=== PATIENT | female | born 1995 | race Hispanic/Latino ===

== ENCOUNTER 2020-08-15 05:55 | Day surgery (SDC) | payer OTHER ==
[2020-08-15] MEDS ORDERED: SCOPOLAMINE TRANSDERMAL PATCH 72 HR TD NR (06:00)
[2020-08-15] MEDS ORDERED: ACETAMINOPHEN 500 MG TAB PO SCH (06:00)
[2020-08-15] MEDS ORDERED: GABAPENTIN 300 MG CAP PO NR (06:00)
[2020-08-15] MEDS ORDERED: CELECOXIB 200 MG CAP PO NR (06:00)
[2020-08-15] MEDS ORDERED: MIDAZOLAM 2 MG/2 ML INJ IV NR (06:00)
[2020-08-15] MEDS ORDERED: LACTATED RINGERS 1,000 ML IV SCH (06:00)
[2020-08-15] MEDS ORDERED: BACTERIOSTATIC SODIUM CHLORIDE 0.9% 30 ML VIAL INFILTRATI ONE (06:28)
[2020-08-15] MEDS ORDERED: BUPIVACAINE/PF (0.25%) 2.5 MG/ML 30 ML VIAL INFILTRATI ONE ×2 (07:19→08:22)
[2020-08-15] MEDS ORDERED: HYDROmorphone 1 MG/1 ML INJ IV PRN (07:21)
[2020-08-15] MEDS ORDERED: ONDANSETRON 4 MG/2 ML INJ IV PRN (07:21)
--- NOTE | 2020-08-15 07:21 | Anesthesia Consultation ---
Anesthesia Consult and Med Hx Date of service: 08/15/20 - Airway Anesthetic Teeth Evaluation: Good (missing left upper wisdom tooth) ROM Head & Neck: Adequate Mental/Hyoid Distance: Adequate Mallampati Class: Class I Intubation Access Assessment: Good - Pulmonary Exam CTA: Yes - Cardiac Exam Cardiac Exam: RRR - Pre-Operative Health Status ASA Pre-Surgery Classification: ASA2 Proposed Anesthetic Plan: General - Pulmonary Hx Smoking: Yes (1/2 PPD) Hx Asthma: Yes (childhood; no recent inhaler use) Hx Respiratory Symptoms: No - Cardiovascular System Hx Hypertension: No Hx Heart Attack/AMI: No Hx Percutaneous Transluminal Coronary Angioplasty (PTCA): No Hx Cardia Arrhythmia: Yes (hx SVT s/p ablation in childhood; no longer follows with cardiology) Hx Pacemaker: No Hx Internal Defibrillator: No 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 Reports recent onset right shoulder pain. Has seen PCP and is being treated for OA. Pain affects ROM of the arm. Will position patient while awake in OR to ensure no strain to shoulder joint.
--- NOTE | 2020-08-15 07:21 | Anesthesia Day of Surgery ---
Anesthesia Day of Surgery - Day of Surgery Patient Examined: Yes Patient H&P Reviewed: Yes Patient is NPO: Yes
--- NOTE | 2020-08-15 07:32 | Short Stay Summary ---
Short Stay Documentation Date of service: 08/15/20 Narrative H&P: Pt is a 25 year old female who presents with prolonged history of recurrent pelvic pain. She has tried multiple medical modalities to no avail. Pt was told that she has an ovarian cyst - History H&P: obtained from office Past Medical History: No medical history Past Surgical History: appendectomy, hysterectomy Social history: - Allergies and Medications Current Medications: Allergies Latex, Natural Rubber Adverse Reaction (Severe, Verified 08/08/20 15:56) Swelling REDDNESS ALBUTERROL-CAUSES RAPID HR Adverse Reaction (Severe, Uncoded 08/08/20 15:56) Unknown CAUSES RAPID HEART RATE REGLAN-PANIC ATTACKS Adverse Reaction (Severe, Uncoded 08/08/20 15:56) Unknown PANIC ATTACKS Home Medications Medication Instructions Recorded Confirmed Last Taken Type Ibuprofen 800 mg PO Q8HR 08/08/20 08/08/20 Unknown History [place] 7.5-325 mg TAB 7.5 mg PO Q6HR PRN 08/08/20 08/08/20 Unknown History Promethazine HCl 25 mg PO PRN 08/08/20 08/08/20 Unknown History Active Medications Acetaminophen (Tylenol) 1,000 mg PO PREOP JOSÉ MANUEL Stop: 08/15/20 23:01 Last Admin: 08/15/20 06:53 Dose: 1,000 mg Documented by: Celecoxib (Celebrex) 200 mg PO PREOP NR Stop: 08/15/20 23:00 Last Admin: 08/15/20 06:53 Dose: 200 mg Documented by: Gabapentin (Gabapentin) 600 mg PO PREOP NR Stop: 08/15/20 23:00 Last Admin: 08/15/20 06:53 Dose: 600 mg Documented by: Hydromorphone HCl (Dilaudid) 0.5 mg IV Q10MIN PRN PRN Reason: Pain , Severe (7-10) Lactated Ringer's (Lactated Ringers) 1,000 mls @ 100 mls/hr IV DIRECT JOSÉ MANUEL Stop: 08/15/20 23:59 Last Admin: 08/15/20 06:44 Dose: 100 mls/hr Documented by: Midazolam HCl (Versed) 2 mg IV PREOP NR Stop: 08/15/20 23:00 Ondansetron HCl (Zofran) 4 mg IV ONCE PRN PRN Reason: Nausea And Vomiting Scopolamine (Transderm-Scop) 1 each TD PREOP NR Stop: 08/15/20 23:00 Last Admin: 08/15/20 06:54 Dose: 1 each Documented by: - Physical exam General appearance: no acute distress, other (thin) Integumentary: no rash HEENT: Atraumatic Lungs: Clear to auscultation, Normal air movement Breasts: deferred Heart: Regular rate, Normal S1, Normal S2 Gastrointestinal: normal, normoactive bowel sounds Female Genitourinary: other (painful) Rectal Exam: deferred Extremities: No edema - Brief post op/procedure progress note Date of procedure: 08/15/20 Pre-op diagnosis: Pelvic pain, Endometriosis Post-op diagnosis: same Procedure: Diagnostic laparoscopy, lysis of adhesions, Cauterization of endometriosis Anesthesia: GETA Findings: surgically absent uterus, moderate pelvic adhesions, scattered lesions of endometriosis Surgeon: GLADIS SANDHU Estimated blood loss: minimal Pathology: none Condition: stable - Hospital course Hospital course: unremarkable - Disposition Condition at discharge: Stable Disposition: DC-01 TO HOME OR SELFCARE Short Stay Discharge Plan Activity: advance as tolerated Weight Bearing Status: Weight Bear as Tolerated Diet: regular Follow up with: PRIMARY CAREMD [Primary Care Provider] - 7 Days GLADIS SANDHU MD [Staff Physician] - 14 Days Prescriptions: Docusate Sodium [Colace] 100 mg PO BID #60 capsule Ibuprofen [Motrin 800 MG tab] 800 mg PO Q8HR PRN #40 tablet PRN Reason: Pain, Mild (1-3) Oxycodone HCl/Acetaminophen [Percocet 7.5/325 mg] 1 each PO Q6HR PRN #20 tablet PRN Reason: Pain
[2020-08-15] MEDS ORDERED: ONDANSETRON 4 MG/2 ML INJ ONE (07:46)
[2020-08-15] MEDS ORDERED: fentaNYL 100 MCG/2 ML INJ ONE ×2 (07:46→07:55)
[2020-08-15] MEDS ORDERED: ROCURONIUM 50 MG/5 ML INJ IV ONE (07:46)
[2020-08-15] MEDS ORDERED: SUCCINYLCHOLINE CHLORIDE 200 MG/10 ML INJ MDV ONE (07:46)
[2020-08-15] MEDS ORDERED: PHENYLEPHRINE/NS 1,000 MCG/10 ML SYRINGE (OR USE) IV ONE (07:46)
[2020-08-15] MEDS ORDERED: dexAMETHasone 20 MG/5 ML VIAL ONE (07:46)
[2020-08-15] MEDS ORDERED: propofoL 200 MG/20 ML VIAL IV ONE (07:46)
[2020-08-15] MEDS ORDERED: GLYCOPYRROLATE 0.4 MG/2 ML INJ ONE (07:46)
[2020-08-15] MEDS ORDERED: LIDOCAINE MPF (2%) 20 MG/1 ML VIAL 5 ML ONE (07:46)
[2020-08-15] MEDS ORDERED: NEOSTIGMINE 10MG/10 ML INJ MDV ONE (07:46)
[2020-08-15] MEDS ORDERED: ceFAZolin/Water 2 GM/20 ML 2 GM/20 ML SYRINGE IV NR (08:00)
[2020-08-15] MEDS ORDERED: SODIUM CHLORIDE 0.9% IRR 1,500 ML BOTTLE IR ONE (08:22)
--- NOTE | 2020-08-15 09:24 | Operative Report ---
Operative Report Operative Report: Preoperative diagnosis: Chronic pelvic pain with history of endometriosis Postoperative diagnosis: Same Procedure: 1.Diagnostic laparoscopy, 2. Lysis of adhesions 3. Cauterization of endometriosis 4. Right ovarian cystectomy Surgeon: Anjelica Tyler Anesthesia: General EBL: Minimal IV fluids: 1000 mL Urine output: 50 mL Findings: Surgically absent uterus, normal left ovary back was mildly adhesed to the left pelvic sidewall, right ovarian cyst approximately 2 cm, scattered lesions of mild endometriosis throughout the pelvic region Specimens: None Complications: None The patient was properly identified as herself. She was then taken to the OR with IV running and in place. She was given general anesthesia without difficulty. She was placed in a dorsal lithotomy position. She was then prepped and draped in normal sterile fashion. Attention was turned to the patient's vagina. Her bladder was drained of clear urine with a red rubber catheter. A sponge stick was inserted into the vagina. The surgeon's gloves were changed and attention turned to the patient's abdomen. A small incision was made in the patient's umbilicus incision a 5 mm trocar was placed. The laparoscope confirmed intra-abdominal placement. The abdomen was insufflated with CO2 gas to approximately 25 mmHg. Initial survey of the abdomen revealed the above findings. Under direct visualization a second incision was made in the left lower quadrant and a third in the suprapubic region. The adhesions on the left were taken down using the LigaSure. Of note there was a cyst on the right ovary which was incised and revealed to be an endometrioma. The areas of endometriosis were systematically cauterized throughout the pelvic area. There was excellent hemostasis at the end of this portion of the procedure. This of Interceed was placed in the lower pelvic gutter to prevent any further adhesions. At this point the abdomen was deflated. All instruments were then removed from the abdomen. The incisions were then closed with 4-0 Monocryl. The incisions were also injected with quarter percent Marcaine. The patient tolerated the procedure well she was then awakened and taken recovery in stable condition. Sponge needle and instrument counts were correct 2.
[2020-08-15] MEDS ORDERED: oxyCODONE /ACETAMINOPHEN 5-325MG TAB PO NR (09:53)
[2020-08-15 10:00] VITALS: BP 103/63
--- NOTE | 2020-08-15 13:35 | Post Anesthesia Evaluation ---
- Post Anesthesia Evaluation Patient Participated: Yes Airway Patent: Yes Stable Respiratory Function: Yes Nausea/Vomiting: No Temp > 96.8F: Yes Pain Manageable: Yes Adequeate Hydration: Yes Anesthesia Complications: No
== END 2020-08-15 10:40 | disposition home or self-care (01) ==
LOC: OR 05:55
PROVIDERS: ATTEND Obstetrics & Gynecology
DX: R10.2 Pelvic and perineal pain (principal); G89.29 Other chronic pain; N80.8 Other endometriosis; F17.210 Nicotine dependence, cigarettes, uncomplicated; J45.909 Unspecified asthma, uncomplicated; K21.9 Gastro-esophageal reflux disease without esophagitis; M19.90 Unspecified osteoarthritis, unspecified site; F41.9 Anxiety disorder, unspecified; F32.9 Major depressive disorder, single episode, unspecified; Z98.890 Other specified postprocedural states; Z88.8 Allergy status to other drugs, medicaments and biological substances; Z79.899 Other long term (current) drug therapy; Z90.49 Acquired absence of other specified parts of digestive tract; Z90.710 Acquired absence of both cervix and uterus; Z87.440 Personal history of urinary (tract) infections
CPT/HCPCS: 58662; C1765; J0330; J0690; J1100; J1170; J2250; J2370; J2405; J2704; J2710; J3010; J7120

== ENCOUNTER 2021-05-01 11:44 | Day surgery (SDC) | payer OTHER ==
--- NOTE | 2021-05-01 09:07 | Short Stay Summary ---
Short Stay Documentation Date of service: 05/01/21 Narrative H&P: Pt is a 26 year old female with a history of endometriosis and severe chronic pelvic pain. Pt had laparoscopy 2 years ago in which adhesive disease was removed. This gave her relief for about 8 months, however she is now in constant pain like she was prior to surgery. Pt had a hysterectomy several years ago with a different physician. She is now requesting removal of both ovaries and understands the risks and consequences of doing so. - History Principal diagnosis: Chronic pelvic pain, ovarian cysts H&P: obtained from office Past Medical History: other Past Surgical History: hysterectomy Social history: - Allergies and Medications Current Medications: Allergies Latex, Natural Rubber Allergy (Severe, Verified 04/29/21 17:08) Swelling REDDNESS ALBUTERROL-CAUSES RAPID HR Allergy (Severe, Uncoded 04/29/21 17:08) Unknown CAUSES RAPID HEART RATE REGLAN-PANIC ATTACKS Allergy (Severe, Uncoded 04/29/21 17:08) Unknown PANIC ATTACKS Home Medications Medication Instructions Recorded Confirmed Last Taken Type Hydromorphone HCl 2 mg PO TID 04/29/21 04/29/21 Unknown History - Physical exam General appearance: mild distress, other (thin) HEENT: Atraumatic, PERRLA Lungs: Clear to auscultation, Normal air movement Breasts: deferred Heart: Regular rate, Normal S1, Normal S2 Gastrointestinal: normal, normoactive bowel sounds Female Genitourinary: deferred Rectal Exam: deferred Extremities: no ischemia, No edema - Brief post op/procedure progress note Date of procedure: 05/01/21 Pre-op diagnosis: Pelvic pain, endometriosis Post-op diagnosis: same Procedure: Operative laparoscopy, Right oopherectomy, ablation of endometriosis lesions Anesthesia: GETA Findings: surgically absent uterus, small cyst on right ovary, multiple implants of endometriosis scattered throughout pelvis and on peritoneum Surgeon: GLADIS SANDHU Estimated blood loss: 50-100ml Pathology: list (right ovary) Specimen disposition: to lab Condition: stable - Hospital course Hospital course: unremarkable - Disposition Condition at discharge: Good Disposition: 01 HOME / SELF CARE / HOMELESS Short Stay Discharge Plan Activity: advance as tolerated Weight Bearing Status: Weight Bear as Tolerated Diet: regular Wound: open to air Follow up with: PRIMARY CARE, [Primary Care Provider] - 7 Days Forms: Outpatient Surgery DC Inst. Prescriptions: estradioL [Estradiol (Twice Weekly)] 0.1 each TD 2XW #8 patch.tdsw Hydromorphone HCl 2 mg PO TID #30
[2021-05-01] MEDS ORDERED: BUPIVACAINE/PF (0.25%) 2.5 MG/ML 30 ML VIAL INFILTRATI ONE ×3 (12:08→13:14)
--- NOTE | 2021-05-01 12:09 | Anesthesia Day of Surgery ---
Anesthesia Day of Surgery - Day of Surgery Patient Examined: Yes Patient H&P Reviewed: Yes Patient is NPO: Yes
[2021-05-01] MEDS ORDERED: HYDROmorphone 1 MG/1 ML INJ IV PRN ×2 (12:11)
--- NOTE | 2021-05-01 12:11 | Anesthesia Consultation ---
Anesthesia Consult and Med Hx Date of service: 05/01/21 - Airway Anesthetic Teeth Evaluation: Poor (Missing) ROM Head & Neck: Adequate Mental/Hyoid Distance: Adequate Mallampati Class: Class III Intubation Access Assessment: Probably Good - Pre-Operative Health Status ASA Pre-Surgery Classification: ASA2 Proposed Anesthetic Plan: General - Pulmonary Hx Smoking: Yes Hx Asthma: Yes (As a child) Hx Respiratory Symptoms: No COPD: No Hx Pneumonia: No Hx Sleep Apnea: No - Cardiovascular System Hx Hypertension: No Hx Heart Attack/AMI: No Hx Percutaneous Transluminal Coronary Angioplasty (PTCA): No Hx Cardia Arrhythmia: Yes (hx SVT s/p ablation in childhood; no longer follows with cardiology) Hx Pacemaker: No Hx Internal Defibrillator: No 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, per patient)) Hx Heart Murmur: Yes (MITRAL VALVE REGURG.) - Central Nervous System Hx Seizures: No CVA: No Hx Back Pain: Yes (arthritis of multiple joints) Hx Psychiatric Problems: Yes - Gastrointestinal Hx Gastroesophageal Reflux Disease: No - Endocrine Hx Renal Disease: No Hx End Stage Renal Disease: No Hx Cirrhosis: No Hx Liver Disease: No Hx Insulin Dependent Diabetes: No Hx Non-Insulin Dependent Diabetes: No Hx Thyroid Disease: No - Hematic Hx Anemia: No Hx Sickle Cell Disease: No - Other Systems Hx Alcohol Use: Yes (Occas) Hx Substance Use: No Hx Cancer: No Hx Obesity: No - Additional Comments Anesthesia Medical History Comments: Here [id number]
[2021-05-01] MEDS ORDERED: LIDOCAINE MPF (2%) 20 MG/1 ML VIAL 5 ML ONE (12:20)
[2021-05-01] MEDS ORDERED: propofoL 200 MG/20 ML VIAL IV ONE (12:20)
[2021-05-01] MEDS ORDERED: HYDROmorphone 1 MG/1 ML INJ ONE (12:20)
[2021-05-01] MEDS ORDERED: ROCURONIUM 50 MG/5 ML INJ IV ONE (12:21)
[2021-05-01] MEDS ORDERED: ceFAZolin/Water 2 GM/20 ML 2 GM/20 ML SYRINGE IV ONE (12:23)
[2021-05-01] MEDS ORDERED: ONDANSETRON 4 MG/2 ML INJ IV PRN (12:30)
[2021-05-01] MEDS ORDERED: LACTATED RINGERS 1,000 ML IV SCH (12:30)
[2021-05-01] MEDS ORDERED: MIDAZOLAM 2 MG/2 ML INJ IV NR (13:00)
[2021-05-01] MEDS ORDERED: ACETAMINOPHEN 325 MG TAB PO ONE (13:00)
[2021-05-01] MEDS ORDERED: MAGNESIUM OXIDE 400 MG TAB PO ONE (13:00)
[2021-05-01] MEDS ORDERED: CELECOXIB 200 MG CAP PO NR (13:00)
[2021-05-01] MEDS ORDERED: SODIUM CHLORIDE 0.9% IRRIG SOLN 2000 ML IR ONE (13:14)
[2021-05-01] MEDS ORDERED: GLYCOPYRROLATE 0.4 MG/2 ML INJ ONE (13:31)
[2021-05-01] MEDS ORDERED: NEOSTIGMINE 10MG/10 ML INJ MDV ONE (13:31)
[2021-05-01] MEDS ORDERED: ONDANSETRON 4 MG/2 ML INJ ONE (13:32)
[2021-05-01] MEDS ORDERED: dexAMETHasone 20 MG/5 ML VIAL ONE (13:32)
[2021-05-01] MEDS ORDERED: KETOROLAC 30 MG/1 ML INJ ONE (13:36)
[2021-05-01] MEDS ORDERED: MEPERIDINE 25 MG/1 ML INJ ONE (13:56)
[2021-05-01] MEDS ORDERED: MEPERIDINE 25 MG/1 ML INJ IV PRN (14:02)
[2021-05-01] MEDS ORDERED: HYDROmorphone 2 MG TAB PO PRN (14:17)
[2021-05-01 15:01] VITALS: BP 95/45
--- NOTE | 2021-05-01 15:34 | Post Anesthesia Evaluation ---
- Post Anesthesia Evaluation Patient Participated: Yes Airway Patent: Yes Stable Respiratory Function: Yes Nausea/Vomiting: No Temp > 96.8F: Yes Pain Manageable: Yes Adequeate Hydration: Yes Anesthesia Complications: No Block Receding Appropriately: Not Applicable Patient on Ventilator: No
--- NOTE | 2021-05-06 09:10 | Operative Report ---
Operative Report Operative Report: Preoperative diagnosis: Undesired fertility Postoperative diagnosis: Same Procedure: Bilateral laparoscopic salpingectomy Surgeon: Anjelica Tyler Anesthesia: General EBL: Minimal IV fluids: 1000 mL Urine output: 150 mL Findings: Normal uterus tubes and ovaries Specimens: Portion of right and left fallopian tube Complications: None The patient was properly identified as herself. She was then taken to the OR with IV running and in place. She was given general anesthesia without difficulty. She was placed in a dorsal lithotomy position. She was then prepped and draped in normal sterile fashion. Attention was turned to the patient's vagina. Her bladder was drained of clear urine with a red rubber c atheter. The speculum was then placed the patient's vagina. The cervix was visualized and grasped with tenaculum. The acorn cannula was then inserted. The surgeon's gloves were changed and attention turned to the patient's abdomen. A small incision was made in the patient's umbilicus incision a 5 mm trocar was placed. The laparoscope confirmed intra-abdominal placement. The abdomen was insufflated with CO2 gas to approximately 25 mmHg. Both fallopian tubes were identified. With direct visualization a second trocar was placed through an incision in the left lower quadrant. Both tubes were found and followed out to the fimbriated ends. Each tube was cauterized at the portion nearest the cornua, then cauterized across the broad ligament until the tube was completely detached. There was excellent hemostasis at the end of this portion of the procedure. Each tube was handed off for pathology. At this point the abdomen was deflated. All instruments were then removed from the abdomen. The incisions were then closed with 4-0 Monocryl. The incisions were also injected with quarter percent Marcaine. The patient tolerated the procedure well she was then awakened and taken recovery in stable condition. Sponge needle and instrument counts were correct 2.
== END 2021-05-01 15:45 | disposition home or self-care (01) ==
LOC: OR 11:44
PROVIDERS: ATTEND Obstetrics & Gynecology
DX: R10.2 Pelvic and perineal pain (principal); M19.90 Unspecified osteoarthritis, unspecified site; J45.909 Unspecified asthma, uncomplicated; K21.9 Gastro-esophageal reflux disease without esophagitis; F41.9 Anxiety disorder, unspecified; F32.9 Major depressive disorder, single episode, unspecified; F17.210 Nicotine dependence, cigarettes, uncomplicated; Z90.49 Acquired absence of other specified parts of digestive tract; Z98.890 Other specified postprocedural states; Z79.899 Other long term (current) drug therapy; Z91.040 Latex allergy status; Z88.8 Allergy status to other drugs, medicaments and biological substances
CPT/HCPCS: 58661; 88305; A4217; J0690; J1100; J1170; J1885; J2175; J2250; J2405; J2704; J2710; J7120